=== PATIENT | male | born 1955 | race Caucasian/White ===

== ENCOUNTER 2021-02-22 17:44 | Emergency (ER) | payer OTHER, MEDICAID, SELFPAY ==
[~2021-02-22] VITALS: Ht 172.7 cm; Wt 74.8 kg
[~2021-02-22 17:44] MED LIST: CARI350T27 PO; CIPR250T4 PO; HYDR-500 PO; LAM100 PO; LEVE750T4 PO; LIP20 PO; METO-290 PO; OXCA300T4 PO; PRO40 PO; RANI300T4 PO
[2021-02-22 18:06] VITALS: BP_SYST 114
--- NOTE | 2021-02-22 19:20 | NUR ---
Patient to ER bed 03 to gown for evaluation. Side rails up.
[2021-02-22] MEDS ORDERED: LIDOCAINE JELLY 5 ML TUBE ONE (20:17)
--- NOTE | 2021-02-22 20:20 | NUR ---
# 20 FR coude Grider catheter with use of sterile technique. Immediate return of 20 cc yellow urine noted. leg bag drainage bag placed below level of bladder. Pt tolerated procedure. xylocaine jelly use for anesthetic effect. Patient arrived with grider cath in place, changed due to standard of practice prior to admission. Patient unable to toilet self.
[2021-02-22] MEDS ORDERED: LIDOCAINE JELLY 5 ML TUBE MM ONE (20:30)
--- NOTE | 2021-02-22 20:50 | NUR ---
Pt and urgent care nurse practitioner given DC instructions and confirmed understanding of aftercare. 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 Sister of pt has already made an appt to follow up with his urologist in the morning since he already had a scheduled appointment for that day. senior medical writer played close attention to dc instuctions and reiterated all aftercare points. pt is completely healthy with no med issues besides the bladder issues and being legally blind. VSS, aaox4, PE wnl, good pulses x4ext, good PMS, strong and reg pulses. Pt denies any pain, sob, dizziness, SÁNCHEZ, n/v. No s/sx of distress present.
[2021-02-22 22:41] VITALS: BP_SYST 127
== END 2021-02-22 21:50 | disposition home or self-care (01) ==
LOC: SED 17:44
DX: T83.018A Breakdown (mechanical) of other urinary catheter, initial encounter (principal); K21.9 Gastro-esophageal reflux disease without esophagitis
CPT/HCPCS: 99284